=== PATIENT | female | born 1950 | race African-American/Black ===

== ENCOUNTER 2021-03-24 05:59 | Emergency (ER) | payer OTHER ==
[~2021-03-24] VITALS: Ht 170.2 cm; Wt 138.2 kg
[2021-03-24 06:42] LABS: ABSOLUTE EOSINOPHILS 0.1 thou/uL (0.0-0.7); ABSOLUTE LYMPHOCYTES 1.2 thou/uL (0.8-5.3); ABSOLUTE MONOCYTES 0.5 thou/uL (0.0-1.2); ABSOLUTE NEUTROPHILS 3.5 thou/uL (1.6-8.1); BASOPHILS 0.7 %; EOSINOPHILS 1.7 %; HEMATOCRIT 38.1 % (37.0-47.0); HEMOGLOBIN 12.9 gm/dL (12.0-15.0); MCH 32.1 pg (26.0-34.0); MCV 94.6 fL (80.0-100.0); NUCLEATED RBCS 0 /100WBC; PLATELET COUNT* 235 thou/uL (150-400); POLYS 65.6 %; RBC 4.03 mil/uL (4.20-5.00); RDW-CV 13.9 % (10.5-14.5); WBC 5.3 thou/uL (4.0-11.0)
[2021-03-24 06:45] LABS: CALCIUM 8.3 mg/dL (8.5-10.1); CREATININE 0.9 mg/dL (0.6-1.3); POTASSIUM 4.2 mmol/L (3.5-5.1)
[2021-03-24] MEDS ORDERED: ZOFRAN ODT4 MG PO (07:29)
[2021-03-24] MEDS ORDERED: HYDROCODON-ACE1 EAC8 PO (07:29)
[2021-03-24 07:42] VITALS: BP 183/97
== END 2021-03-24 07:43 | disposition home or self-care (01) ==
LOC: M.ERS 05:59
PROVIDERS: Emergency Medicine
DX: R10.84 Generalized abdominal pain (principal); M19.90 Unspecified osteoarthritis, unspecified site; Z88.5 Allergy status to narcotic agent